=== PATIENT | male | born 1960 | race Two or more races ===

== ENCOUNTER 2023-10-04 09:02 | Outpatient (CLI) | payer OTHER, SELFPAY ==
--- NOTE | 2023-10-04 09:15 | CRLHL7_ITS ---
For Patients: As a result of the Century Cures Act, medical imaging exams and procedure reports are released immediately into your electronic medical record. You may view this report before your referring provider. If you have questions, please contact your health care provider. Indication: Hernia of abdominal cavity Technique: Grayscale and color Doppler ultrasound of the abdominal wall performed in the area of concern. Comparison: None Findings: Midline abdominal wall hernia is present containing bowel. No fluid collection or abscess. No abnormal vascularity. Impression: Midline abdominal wall hernia containing bowel. Dictated by Saw Medina MD @ 10/04/2023 11:23:06 AM (Electronically Signed)
== END 2023-10-04 09:03 | disposition home or self-care (01) ==
DX: K46.9 Unspecified abdominal hernia without obstruction or gangrene (principal)
CPT/HCPCS: 76705

== ENCOUNTER 2023-10-11 14:46 | Outpatient (CLI) | payer OTHER, SELFPAY | END 2023-10-11 14:47 | disposition home or self-care (01) | PROVIDERS: Visit Provider Family Medicine | DX: Z00.00 Encounter for general adult medical examination without abnormal findings (principal); I10 Essential (primary) hypertension; Z12.5 Encounter for screening for malignant neoplasm of prostate; Z13.6 Encounter for screening for cardiovascular disorders | CPT/HCPCS: 80048; 80061; G0103 ==

== ENCOUNTER 2023-12-03 06:10 | Day surgery (SDC) | payer OTHER, SELFPAY ==
[2023-12-03 06:20] VITALS: BMI 36.9
[2023-12-03 06:55] VITALS: BP 152/97; PULSE 75; RESP 16; TEMP 36.6; O2SAT 97
[2023-12-03] MEDS: LACTATED RINGERS 1000 ML 1,000 ML 100 ML IV (07:00)
[2023-12-03] MEDS: SCOPOLAMINE 1 MG/3 DAY PATCH 1 PATCH TRANSDERMA (07:00)
[2023-12-03] MEDS: SODIUM CHLORIDE 0.9 % (FLUSH) 10 ML SYRINGE IVF (07:02)
--- NOTE | 2023-12-03 07:28 | W.PM.H&PU ---
History & Physical Update History & Physical Update H&P Reviewed and patient assessed: No changes noted
--- NOTE | 2023-12-03 07:31 | PM.GSPRC ---
Operative Note Date of procedure: 12/03/23 Pre-op diagnosis: 1. Symptomatic umbilical hernia. Post-op diagnosis: 1. Incarcerated umbilical hernia containing preperitoneal fat. Type of Procedure: 1. Umbilical hernia repair with mesh. Indications: 63-year-old male was seen in clinic for evaluation of an umbilical hernia. He noticed a bulge at his belly button approximately 4 weeks prior to his presentation. This was more prominent when he was standing up. He denied pain at the bulge but felt that the size of the bulge has been enlarging. On clinical exam at the superior aspect of the umbilicus was a grape sized umbilical hernia palpated. This was reducible. Given patient's clinical history and his physical exam, an open umbilical hernia repair was recommended. The procedure was discussed in detail. The risks associated procedure including infection, bleeding, and injury to intra-abdominal organs, as well as hernia recurrence were all discussed with the patient, and he agreed to proceed. Procedure Description: After discussing the risks and benefits of the procedure, the patient signed informed consent.? The operative site was marked and the patient was brought to the operating room and placed on the operating table in supine position.? Care was taken to pad the patient's pressure points.?? The patient was then sedated by anesthesia.?? The operative site was then prepped and draped in the usual sterile fashion.? A time-out was then performed. Local anesthetic was injected at the surgical site. A curvilinear skin incision was made with a scalpel just above the umbilicus. Subcutaneous tissue was dissected with electrocautery down to the hernia sac and anterior fascia. The hernia sac was dissected off of the anterior fascia and subcutaneous fat around the fascial defect was dissected away from the fascial defect with cautery. I then developed preperitoneal space for mesh insertion. A small opening in the hernia sac was noted. I was able to advance my finger into the abdomen and no intra-abdominal structures were adherent to the underside of the hernia sac. This opening in the hernia sac was then closed with a running 3-0 Vicryl suture. The fascial defect was approximately 1.3 cm. A small Ventralex ST mesh patch was then inserted into preperitoneal space and secured to the fascia using 0-0 Neurolon interrupted stitches. I examined my closure and no defects were identified between the fascia and the mesh. Fascia was re-approximated over the mesh with a running 2-0 Vicryl stitch. Additional local anesthetic was injected into subcutaneous tissues. An umbilicus was tacked down with interrupted 3-0 Vicryl stitches. Subdermal layer was closed with interrupted sutures using 3-0 Vicryl. Skin was closed with 4-0 Monocryl using subcuticular stitch. Steri strips were applied over the incision. I then placed a folded sterile 2 x 2 and 4x4 gauze over the incision and covered it with tape. All counts were correct at the end of the case. Patient tolerated the procedure well and was transferred to PACU without any complications. Findings: 1.3 cm fascial defect, repaired with small mesh patch.. Implants: Ventralex ST mesh Anesthesia: MAC and local Surgeon: Chon Mai MD Estimated blood loss (mL): 5 Condition: stable Disposition: same day
[2023-12-03] MEDS: CEFAZOLIN 2 GM INJ IVP (07:38)
[2023-12-03] MEDS: BUPIVACAINE 0.25% 30 ML INJECTION (07:49)
--- NOTE | 2023-12-03 08:02 | W.ANESCHARGE ---
Anesthesia Charges Start Date/Time Anesthesia Start Date: 12/03/23 Anesthesia Start Time: 07:30 Stop Date/Time Anesthesia Stop Date: 12/03/23 Anesthesia Stop Time: 08:40
[2023-12-03 08:38] VITALS: BP 121/72; PULSE 64; RESP 16; TEMP 36.2; O2SAT 95
[2023-12-03 08:45] VITALS: BP 126/77; PULSE 61; RESP 16; O2SAT 95
[2023-12-03 09:00] VITALS: BP 125/76; PULSE 56; RESP 16; O2SAT 98
[2023-12-03 09:15] VITALS: BP 129/75; PULSE 50; RESP 16; O2SAT 95
[2023-12-03 09:30] VITALS: BP 130/77; PULSE 57; RESP 16; TEMP 36.2; O2SAT 95
--- NOTE | 2023-12-03 09:42 | W.ANESCHARGE ---
Anesthesia Charges Start Date/Time Anesthesia Start Date: 12/03/23 Anesthesia Start Time: 07:30 Stop Date/Time Anesthesia Stop Date: 12/03/23 Anesthesia Stop Time: 08:40
--- NOTE | 2023-12-03 10:20 | SUR.PHASEII ---
pt up to bathroom, doesn't report pain, more soreness 3-4/10. pt states tolerable at this time. pt waiting in room for to arrive from her appt. declines food at this time. tolerated coffee.
== END 2023-12-03 11:05 | disposition home or self-care (01) ==
PROVIDERS: PCP Family Medicine; Visit Provider Surgery
PROC: (CPT 49592; principal; 2023-12-03 07:30)
DX: K42.0 Umbilical hernia with obstruction, without gangrene (principal)
CPT/HCPCS: 49592; 00830; A9270; C1781; J0665; J0690; J1885; J2405; J2704; J3010; J7120

== ENCOUNTER 2024-12-14 15:39 | Outpatient (CLI) | payer OTHER, SELFPAY | END 2024-12-14 15:40 | disposition home or self-care (01) | PROVIDERS: PCP Family Medicine; Visit Provider Family Medicine | DX: I10 Essential (primary) hypertension (principal); R68.82 Decreased libido; Z12.5 Encounter for screening for malignant neoplasm of prostate | CPT/HCPCS: 80048; 80061; 84403; G0103 ==

== ENCOUNTER 2025-03-08 09:09 | Outpatient (CLI) | payer OTHER, SELFPAY ==
--- NOTE | 2025-03-08 10:22 | P.ANES_ITS ---
Anesthesia Charges Start Date/Time Anesthesia Start Date: 03/08/25 Anesthesia Start Time: 09:50 Stop Date/Time Anesthesia Stop Date: 03/08/25 Anesthesia Stop Time: 10:17 Coding CPT Codes CPT Codes: IVAN LWR INTST SCR COLSC - [id number] ([id number]) QK - COURT INTERPRETER 2-4 CNCRNT IVAN PROC, QX - GRANITE INSTALLER SVC W/ MD MED DIRECTION, P2 - PATIENT W/MILD SYST DISEASE
--- NOTE | 2025-03-08 10:22 | W.ANESCHARGE ---
Anesthesia Charges Start Date/Time Anesthesia Start Date: 03/08/25 Anesthesia Start Time: 09:50 Stop Date/Time Anesthesia Stop Date: 03/08/25 Anesthesia Stop Time: 10:17 Coding CPT Codes CPT Codes: IVAN LWR INTST SCR COLSC - [id number] ([id number]) QK - CELLAR PACKER 2-4 CNCRNT IVAN PROC, QX - BILLIARD TABLE ASSEMBLER SVC W/ MD MED DIRECTION, P2 - PATIENT W/MILD SYST DISEASE
--- NOTE | 2025-03-08 10:25 | P.ANES_ITS ---
Anesthesia Charges Start Date/Time Anesthesia Start Date: 03/08/25 Anesthesia Start Time: 09:50 Stop Date/Time Anesthesia Stop Date: 03/08/25 Anesthesia Stop Time: 10:17 Coding CPT Codes CPT Codes: IVAN LWR INTST SCR COLSC - [id number] ([id number]) P2 - PATIENT W/MILD SYST DISEASE, QX - STONE ROUGHER SVC W/ MD MED DIRECTION, QK - HEADLINER INSTALLER 2-4 CNCRNT ANES PROC
--- NOTE | 2025-03-08 10:25 | W.ANESCHARGE ---
Anesthesia Charges Start Date/Time Anesthesia Start Date: 03/08/25 Anesthesia Start Time: 09:50 Stop Date/Time Anesthesia Stop Date: 03/08/25 Anesthesia Stop Time: 10:17 Coding CPT Codes CPT Codes: IVAN LWR INTST SCR COLSC - 63703 ([id number]) P2 - PATIENT W/MILD SYST DISEASE, QX - HEALTH SERVICE COORDINATOR SVC W/ MD MED DIRECTION, QK - AVIATION TECHNICIAN AIRCRAFT 2-4 CNCRNT ANES PROC
== END 2025-03-08 09:10 | disposition home or self-care (01) ==
LOC: OP CLINIC 09:10
PROVIDERS: PCP Family Medicine; Visit Provider Internal Medicine
DX: Z12.11 Encounter for screening for malignant neoplasm of colon (principal); K57.30 Diverticulosis of large intestine without perforation or abscess without bleeding
CPT/HCPCS: 00812; 45378; J2704